=== PATIENT | female | born 1950 | race Two or more races ===

== ENCOUNTER 2018-03-08 08:43 | Outpatient (CLI) | payer OTHER | END 2018-03-08 09:16 | disposition home or self-care (01) | LOC: RAD 501 08:43 | DX: M05.79 Rheumatoid arthritis with rheumatoid factor of multiple sites without organ or systems involvement (principal) ==

== ENCOUNTER 2019-01-13 17:57 | Emergency (ER) | payer OTHER ==
[~2019-01-13] VITALS: Ht 154.9 cm; Wt 61.2 kg
[2019-01-13] MEDS ORDERED: FOLIC ACID1 MG (18:43)
[2019-01-13] MEDS ORDERED: SYNTHROID137 MCG (18:43)
[2019-01-13] MEDS ORDERED: METHOTREXATE (18:44)
[2019-01-13] MEDS ORDERED: PREDNISONE20 MG (18:45)
== END 2019-01-13 20:06 | disposition home or self-care (01) ==
LOC: ER 17:57
DX: S40.011A Contusion of right shoulder, initial encounter (principal); W17.89XA Other fall from one level to another, initial encounter; Y93.89 Activity, other specified; Y92.480 Sidewalk as the place of occurrence of the external cause; Y99.8 Other external cause status

== ENCOUNTER 2019-01-28 09:15 | Outpatient (CLI) | payer OTHER ==
[~2019-01-28 09:15] MED LIST: FOLIC ACID1 MG; METHOTREXATE; PREDNISONE20 MG; SYNTHROID137 MCG
== END 2019-01-28 10:44 | disposition home or self-care (01) ==
LOC: TOM 09:15
DX: M25.511 Pain in right shoulder (principal)

== ENCOUNTER 2019-08-04 09:15 | Emergency (ER) | payer OTHER ==
[~2019-08-04] VITALS: Ht 152.4 cm; Wt 64.4 kg
== END 2019-08-04 11:12 | disposition home or self-care (01) ==
LOC: ER 09:15
DX: S00.531A Contusion of lip, initial encounter (principal); W18.39XA Other fall on same level, initial encounter; Y93.89 Activity, other specified; Y92.89 Other specified places as the place of occurrence of the external cause; Y99.8 Other external cause status

== ENCOUNTER 2024-01-02 07:17 | Day surgery (SDC) | payer OTHER ==
[2024-01-02] MEDS ORDERED: fentaNYL CITRATE 50 MCG/ML AMPUL IV PUSH ONE (13:15)
[2024-01-02] MEDS ORDERED: MIDAZOLAM HCL 2 MG/2 ML VIAL IV ONE (13:15)
== END 2024-01-02 12:30 | disposition home or self-care (01) ==
LOC: AMB-ENDOS 07:17
PROVIDERS: ATTEND Colon & Rectal Surgery
DX: K57.30 Diverticulosis of large intestine without perforation or abscess without bleeding (principal); D12.8 Benign neoplasm of rectum

== ENCOUNTER 2025-02-05 09:23 | Outpatient (CLI) | payer OTHER | END 2025-02-05 09:24 | disposition home or self-care (01) | LOC: NUCLEAR 09:23 | DX: I50.9 Heart failure, unspecified (principal) ==

== ENCOUNTER 2025-02-12 08:39 | Outpatient (CLI) | payer OTHER | END 2025-02-12 08:45 | disposition home or self-care (01) | LOC: NUCLEAR 08:39 | DX: I82.409 Acute embolism and thrombosis of unspecified deep veins of unspecified lower extremity (principal) ==

== ENCOUNTER 2025-10-16 09:34 | Outpatient (CLI) | payer OTHER | END 2025-10-16 09:39 | disposition home or self-care (01) | LOC: NUCLEAR 09:34 | PROVIDERS: ATTEND Internal Medicine Rheumatology | DX: M81.0 Age-related osteoporosis without current pathological fracture (principal) ==